=== PATIENT | female | born 1960 | race American Indian/Alaskan Native ===

== ENCOUNTER 2017-05-25 18:47 | Emergency (ER) | payer MEDICAID ==
[2017-05-25] MEDS ORDERED: ZOFRAN ODT PO ONE (19:01)
[2017-05-25 19:29] LABS: Basophils % (Auto) 0.5 % (0.0-1.8); Eosinophils % (Auto) 1.6 % (0.0-4.3); Hematocrit 35.5 % (30.3-42.9); Hemoglobin 11.7 gm/dl (10.1-14.3); Mean Corpuscular HGB Conc 33 % (30-34); Mean Corpuscular Volume 75 fl (79-97); Platelet Count 220 K/mm3 (140-440); Red Blood Count 4.73 M/mm3 (3.65-5.03); Red Cell Distribution Width 16.5 % (13.2-15.2); White Blood Count 6.8 K/mm3 (4.5-11.0)
[2017-05-25 19:42] LABS: Mean Corpuscular Hemoglobin 25 pg (28-32)
[2017-05-25 19:49] LABS: Alanine Aminotransferase 19 units/L (7-56); Albumin 4.3 g/dL (3.9-5); Albumin/Globulin Ratio 0.9 %; Alkaline Phosphatase 249 units/L (35-129); Anion Gap 19 mmol/L; BUN/Creatinine Ratio 10; Blood Urea Nitrogen 5 mg/dL (7-17); Calcium 9.8 mg/dL (8.4-10.2); Carbon Dioxide 32 mmol/L (22-30); Chloride 94.5 mmol/L (98-107); Glucose 87 mg/dL (65-100); Lipase 27 units/L (13-60); Potassium 3.1 mmol/L (3.6-5.0); Sodium 142 mmol/L (137-145); Total Protein 8.9 g/dL (6.3-8.2)
[2017-05-25] MEDS ORDERED: K-DUR PO ONE (21:45)
[2017-05-25 22:46] LABS: Bilirubin,Urine NEG (Negative); Blood,Urine NEG (Negative); Ketones,Urine NEG (Negative); Leukocyte Esterase,Urine NEG (Negative); Mucus,Urine FEW /HPF; Nitrite,Urine NEG (Negative); Protein,Urine >500 mg/dL (Negative)
[2017-05-26] MEDS ORDERED: MAG-OX PO ONE (02:04)
[2017-05-26] MEDS ORDERED: MAGNESIUM SULFATE 2GM/50ML 2 GM/50 ML BAG IV ONE (02:12)
[2017-05-26] MEDS ORDERED: DILAUDID IV ONE (02:12)
[2017-05-26] MEDS ORDERED: PEPCID IV ONE (02:12)
[2017-05-26] MEDS ORDERED: ZOFRAN IV ONE (02:12)
[2017-05-26] MEDS ORDERED: BENTYL IM ONE (02:13)
--- NOTE | 2017-05-26 02:13 | Emergency Department Report ---
ED General Adult HPI - General Chief complaint: Nausea/Vomiting/Diarrhea Stated complaint: VOMITING Time Seen by Provider: 05/26/17 02:03 Source: patient, EMS (ems notes not available at time of chart dictation), RN notes reviewed, old records reviewed Mode of arrival: Ambulatory Limitations: No Limitations - History of Present Illness Initial comments: This is a 56-year-old female who was previously evaluated by me in 2016. Patient has a past medical history of hypertension, high cholesterol, history of cholecystectomy, history of open heart surgery, history of renal colic. Patient presents to the ER complaining of abdominal pain. The abdominal pain is epigastric and radiates down to the suprapubic region. The abdominal pain has been present since 9:00 yesterday morning. The abdominal pain has been present for approximately 18 hours. It is intermittent. It increases with palpation, and it decreases with rest. Patient describes 7 episodes of nonbloody, emesis, although reports it is green. She defecated yesterday. She passed gas yesterday. There is no headache, neck pain, chest pain, shortness of breath, diaphoresis. The patient denies irritative sinus obstructive urinary symptoms. Of note, patient had a CAT scan back in January which suggested nonspecific ascites, patient reports that she thinks that she followed up with her primary care doctor for evaluation of cirrhosis/hepatitis, but is not sure what the workup demonstrated. -: Gradual Location: abdomen Radiation: abdomen, periumbillical Severity scale (0 -10): 10 Quality: aching Improves with: rest Worsens with: movement Associated Symptoms: malaise, nausea/vomiting, weakness. denies: confusion, chest pain, cough - Related Data Home Medications Medication Instructions Recorded Confirmed Last Taken Atorvastatin (Nf) [Lipitor] 1 tab PO DAILY 06/25/14 07/31/15 01/31/15 Insulin Glargine,Hum.rec.anlog 60 units SC DAILY 06/25/14 07/31/15 01/31/15 [Lantus] Metformin HCl [Glucophage] 1 tab PO DAILY 06/25/14 07/31/15 01/31/15 Multivit-Min/FA/Lycopen/Lutein [Eq 1 tab PO DAILY 06/25/14 07/31/15 01/31/15 Complete Multivitamin Tab] Quinapril HCl [Quinapril HCl] 1 tab PO DAILY 06/25/14 07/31/15 01/31/15 Methimazole 10 mg PO 07/31/15 Unknown Metoprolol [Lopressor] 25 mg PO 07/31/15 Unknown Previous Rx's Medication Instructions Recorded Last Taken Type Dicyclomine [Bentyl] 10 mg PO QID PRN #20 capsule 07/31/15 Unknown Rx Ondansetron [Zofran Odt] 4 mg PO QID PRN #20 tab.rapdis 07/31/15 Unknown Rx Ondansetron [Zofran Odt] 4 mg PO Q8HR #20 tab.rapdis 02/15/16 Unknown Rx traMADol [Ultram] 50 mg PO Q4HR PRN #20 tablet 02/15/16 Unknown Rx Acetaminophen [Tylenol Arthritis] 650 mg PO Q6HR PRN #30 tablet.er 05/26/17 Unknown Rx Ibuprofen [Motrin] 600 mg PO Q8H PRN #30 tablet 05/26/17 Unknown Rx Levofloxacin [Levaquin] 750 mg PO QDAY #7 tablet 05/26/17 Unknown Rx Magnesium Oxide 500 mg PO QDAY #7 capsule 05/26/17 Unknown Rx Metoclopramide [Reglan] 10 mg PO QID PRN #30 tablet 05/26/17 Unknown Rx Potassium Chloride 20 meq PO QDAY #7 packet 05/26/17 Unknown Rx Allergies Allergy/AdvReac Type Severity Reaction Status Date / Time codeine Allergy Hives Verified 02/15/16 13:26 Penicillins Allergy Hives Verified 02/15/16 13:26 ED Review of Systems ROS: Stated complaint: VOMITING Other details as noted in HPI Constitutional: malaise. denies: fever Eyes: denies: eye discharge ENT: denies: epistaxis Respiratory: denies: cough Cardiovascular: denies: chest pain Gastrointestinal: abdominal pain, nausea, vomiting Genitourinary: denies: dysuria Musculoskeletal: as per HPI Skin: as per HPI Neurological: weakness Psychiatric: as per HPI ED Past Medical Hx - Past Medical History Hx Hypertension: Yes (PLUS 10 YRS) Hx Diabetes: Yes Hx GERD: Yes Hx Asthma: No Hx COPD: No Hx Tuberculosis: No Hx HIV: No Additional medical history: HIGH CHOLESTEROL - Surgical History Hx Open Heart Surgery: Yes Hx Cholecystectomy: Yes Additional Surgical History: "THYROID PROBLEMS" - Social History Smoking Status: Never Smoker Substance Use Type: None - Medications Home Medications: Home Medications Medication Instructions Recorded Confirmed Last Taken Type Atorvastatin (Nf) [Lipitor] 1 tab PO DAILY 06/25/14 07/31/15 01/31/15 History Insulin Glargine,Hum.rec.anlog 60 units SC DAILY 06/25/14 07/31/15 01/31/15 History [Lantus] Metformin HCl [Glucophage] 1 tab PO DAILY 06/25/14 07/31/15 01/31/15 History Multivit-Min/FA/Lycopen/Lutein [Eq 1 tab PO DAILY 06/25/14 07/31/15 01/31/15 History Complete Multivitamin Tab] Quinapril HCl [Quinapril HCl] 1 tab PO DAILY 06/25/14 07/31/15 01/31/15 History Dicyclomine [Bentyl] 10 mg PO QID PRN #20 capsule 07/31/15 Unknown Rx Methimazole 10 mg PO 07/31/15 Unknown History Metoprolol [Lopressor] 25 mg PO 07/31/15 Unknown History Ondansetron [Zofran Odt] 4 mg PO QID PRN #20 tab.rapdis 07/31/15 Unknown Rx Ondansetron [Zofran Odt] 4 mg PO Q8HR #20 tab.rapdis 02/15/16 Unknown Rx traMADol [Ultram] 50 mg PO Q4HR PRN #20 tablet 02/15/16 Unknown Rx Acetaminophen [Tylenol Arthritis] 650 mg PO Q6HR PRN #30 tablet.er 05/26/17 Unknown Rx Ibuprofen [Motrin] 600 mg PO Q8H PRN #30 tablet 05/26/17 Unknown Rx Levofloxacin [Levaquin] 750 mg PO QDAY #7 tablet 05/26/17 Unknown Rx Magnesium Oxide 500 mg PO QDAY #7 capsule 05/26/17 Unknown Rx Metoclopramide [Reglan] 10 mg PO QID PRN #30 tablet 05/26/17 Unknown Rx Potassium Chloride 20 meq PO QDAY #7 packet 05/26/17 Unknown Rx ED Physical Exam - General Limitations: No Limitations General appearance: alert, in distress - Head Head exam: Present: atraumatic, normocephalic - Eye Eye exam: Present: normal appearance, EOMI - ENT ENT exam: Present: normal exam, normal orophraynx, mucous membranes moist, normal external ear exam - Neck Neck exam: Present: normal inspection, full ROM - Respiratory Respiratory exam: Present: normal lung sounds bilaterally. Absent: respiratory distress, chest wall tenderness - Cardiovascular Cardiovascular Exam: Present: regular rate, normal rhythm, normal heart sounds. Absent: systolic murmur, diastolic murmur, rubs, gallop - GI/Abdominal GI/Abdominal exam: Present: soft, normal bowel sounds. Absent: distended, tenderness, guarding, rebound, rigid, pulsatile mass - Extremities Exam Extremities exam: Present: normal inspection, full ROM, normal capillary refill. Absent: pedal edema, joint swelling, calf tenderness - Back Exam Back exam: Present: normal inspection, full ROM. Absent: tenderness, CVA tenderness (R), paraspinal tenderness, vertebral tenderness - Neurological Exam Neurological exam: Present: alert, oriented X3, CN II-XII intact, other ( Extraocular movements intact. Tongue midline. No facial droop. Facial sensation intact to light touch in the V1, V2, V3 distribution bilaterally. 5 and 5 strength in 4 extremities.. Sensation is intact to light touch in 4 extremities.). Absent: motor sensory deficit - Psychiatric Psychiatric exam: Present: anxious - Skin Skin exam: Present: warm, dry, intact, normal color. Absent: rash ED Course Vital Signs 05/25/17 05/25/17 05/26/17 18:56 23:56 02:44 Temperature 98.3 F 97.4 F L Pulse Rate 96 H 89 94 H Respiratory 18 14 14 Rate Blood Pressure 190/100 214/115 Blood Pressure [Left] O2 Sat by Pulse 100 100 100 Oximetry 05/26/17 05/26/17 05/26/17 02:45 02:46 02:48 Temperature Pulse Rate 94 H 98 H 98 H Respiratory 14 14 24 Rate Blood Pressure 200/101 200/101 200/101 Blood Pressure [Left] O2 Sat by Pulse 100 100 99 Oximetry 05/26/17 05/26/17 05/26/17 02:50 02:52 02:54 Temperature Pulse Rate 97 H 94 H 96 H Respiratory 24 22 19 Rate Blood Pressure 200/101 200/101 200/101 Blood Pressure [Left] O2 Sat by Pulse 99 99 100 Oximetry 05/26/17 05/26/17 05/26/17 02:56 02:58 03:00 Temperature Pulse Rate 93 H 91 H 94 H Respiratory 18 21 13 Rate Blood Pressure 200/101 149/80 149/80 Blood Pressure [Left] O2 Sat by Pulse 100 99 100 Oximetry 05/26/17 05/26/17 05/26/17 03:02 03:04 03:06 Temperature Pulse Rate 89 87 89 Respiratory 21 19 20 Rate Blood Pressure 158/85 158/85 158/85 Blood Pressure [Left] O2 Sat by Pulse 99 99 100 Oximetry 05/26/17 05/26/17 05/26/17 03:08 03:10 03:12 Temperature Pulse Rate 88 86 88 Respiratory 21 20 20 Rate Blood Pressure 158/85 158/85 158/85 Blood Pressure [Left] O2 Sat by Pulse 100 100 100 Oximetry 05/26/17 05/26/17 05/26/17 03:14 03:16 03:18 Temperature Pulse Rate 89 86 89 Respiratory 20 19 16 Rate Blood Pressure 158/85 158/85 158/85 Blood Pressure [Left] O2 Sat by Pulse 100 100 100 Oximetry 05/26/17 05/26/17 05/26/17 03:20 03:22 03:24 Temperature Pulse Rate 87 89 87 Respiratory 13 18 18 Rate Blood Pressure 158/85 156/85 156/85 Blood Pressure [Left] O2 Sat by Pulse 100 100 100 Oximetry 05/26/17 05/26/17 03:26 04:41 Temperature 97.5 F L Pulse Rate 90 98 H Respiratory 19 17 Rate Blood Pressure 156/85 Blood Pressure 193/99 [Left] O2 Sat by Pulse 100 100 Oximetry - Reevaluation(s) Reevaluation #1: 05/26/17 02:49 Differential diagnosis, including but not limited to: Diabetic gastroparesis, renal colic, pneumonia, GERD, gastritis, pancreatitis, hiatal hernia, intra-abdominal infection, elevated blood pressure secondary to pain and discomfort Assessment and plan: 56-year-old female, with complaint of epigastric pain that radiates distally, no chest pain or shortness of breath, with symptoms for approximately 18 hours. She is afebrile and hypertensive. Abdomen soft and benign. Laboratory studies demonstrate hypokalemia, hypomagnesemia. Patient will be given hydromorphone for pain, IV fluids, nausea medication. We will obtain EKG, and CT scan of the abdomen and pelvis. We will reassess after initial data points. Pressure is appreciated, this is most likely secondary to patient's pain and distress, she appears to be somewhat dehydrated, so we will withhold antihypertensives at this time. Reevaluation #2: 05/26/17 03:19 Patient reports improvement in pain. Blood pressure improved. CT scan pending Reevaluation #3: 05/26/17 05:07 CT scan of the abdomen and pelvis suggests possible early urinary tract infection: Distal bilateral periureteral stranding and urothelial thickening may be due to upper urinary tract infection. Correlation with urinalysis is requested. No abnormal enhancement pattern identified within the kidneys. Patient will be loaded with Levaquin IV, and discharged with levaquin. She has not had any vomiting since I previously evaluated her, and she is suitable for a trial of outpatient antibiotic therapy. Clinically doubt pyelonephritis given lack of CVA tenderness, CT scan findings, and urinalysis. Return precautions are reviewed. 05/26/17 05:12 Reevaluation #4: 05/26/17 05:18 As per verbal report from nurse, patient is able to tolerate liquid feeds. ED Medical Decision Making - Lab Data Result diagrams: 05/25/17 19:04 05/25/17 19:04 Vital Signs 05/25/17 05/25/17 18:56 23:56 Temperature 98.3 F 97.4 F L Pulse Rate 96 H 89 Respiratory 18 14 Rate Blood Pressure 190/100 214/115 O2 Sat by Pulse 100 100 Oximetry Lab Results 05/25/17 05/25/17 05/25/17 Range/Units 19:04 19:04 19:04 WBC 6.8 (4.5-11.0) K/mm3 RBC 4.73 (3.65-5.03) M/mm3 Hgb 11.7 (10.1-14.3) gm/dl Hct 35.5 (30.3-42.9) % MCV 75 L (79-97) fl MCH 25 L (28-32) pg MCHC 33 (30-34) % RDW 16.5 H (13.2-15.2) % Plt Count 220 (140-440) K/mm3 Lymph % (Auto) 15.1 (13.4-35.0) % [place] % (Auto) 5.4 (0.0-7.3) % Eos % (Auto) 1.6 (0.0-4.3) % Baso % (Auto) 0.5 (0.0-1.8) % Lymph # 1.0 L (1.2-5.4) K/mm3 [place] # 0.4 (0.0-0.8) K/mm3 Eos # 0.1 (0.0-0.4) K/mm3 Baso # 0.0 (0.0-0.1) K/mm3 Seg Neutrophils % 77.4 H (40.0-70.0) % Seg Neutrophils # 5.2 (1.8-7.7) K/mm3 Sodium 142 (137-145) mmol/L Potassium 3.1 L (3.6-5.0) mmol/L Chloride 94.5 L (98-107) mmol/L Carbon Dioxide 32 H (22-30) mmol/L Anion Gap 19 mmol/L BUN 5 L (7-17) mg/dL Creatinine 0.5 L (0.7-1.2) mg/dL Estimated GFR > 60 ml/min BUN/Creatinine Ratio 10 % Glucose 87 (65-100) mg/dL Calcium 9.8 (8.4-10.2) mg/dL Magnesium 1.40 L (1.7-2.3) mg/dL Total Bilirubin 1.40 H (0.1-1.2) mg/dL AST 30 (5-40) units/L ALT 19 (7-56) units/L Alkaline Phosphatase 249 H (35-129) units/L Total Protein 8.9 H (6.3-8.2) g/dL Albumin 4.3 (3.9-5) g/dL Albumin/Globulin Ratio 0.9 % Lipase 27 (13-60) units/L Urine Color (Yellow) Urine Turbidity (Clear) Urine pH (5.0-7.0) Ur Specific [place] (1.003-1.030) Urine Protein (Negative) mg/dL Urine Glucose (UA) (Negative) mg/dL Urine Ketones (Negative) mg/dL Urine Blood (Negative) Urine Nitrite (Negative) Urine Bilirubin (Negative) Urine Urobilinogen (<2.0) mg/dL Ur Leukocyte Esterase (Negative) Urine WBC (Auto) (0.0-6.0) /HPF Urine RBC (Auto) (0.0-6.0) /HPF U Epithel Cells (Auto) (0-13.0) /HPF Urine Mucus /HPF 05/25/17 Range/Units 22:22 WBC (4.5-11.0) K/mm3 RBC (3.65-5.03) M/mm3 Hgb (10.1-14.3) gm/dl Hct (30.3-42.9) % MCV (79-97) fl MCH (28-32) pg MCHC (30-34) % RDW (13.2-15.2) % Plt Count (140-440) K/mm3 Lymph % (Auto) (13.4-35.0) % [place] % (Auto) (0.0-7.3) % Eos % (Auto) (0.0-4.3) % Baso % (Auto) (0.0-1.8) % Lymph # (1.2-5.4) K/mm3 [place] # (0.0-0.8) K/mm3 Eos # (0.0-0.4) K/mm3 Baso # (0.0-0.1) K/mm3 Seg Neutrophils % (40.0-70.0) % Seg Neutrophils # (1.8-7.7) K/mm3 Sodium (137-145) mmol/L Potassium (3.6-5.0) mmol/L Chloride (98-107) mmol/L Carbon Dioxide (22-30) mmol/L Anion Gap mmol/L BUN (7-17) mg/dL Creatinine (0.7-1.2) mg/dL Estimated GFR ml/min BUN/Creatinine Ratio % Glucose (65-100) mg/dL Calcium (8.4-10.2) mg/dL Magnesium (1.7-2.3) mg/dL Total Bilirubin (0.1-1.2) mg/dL AST (5-40) units/L ALT (7-56) units/L Alkaline Phosphatase (35-129) units/L Total Protein (6.3-8.2) g/dL Albumin (3.9-5) g/dL Albumin/Globulin Ratio % Lipase (13-60) units/L Urine Color Yellow (Yellow) Urine Turbidity Clear (Clear) Urine pH 8.0 H (5.0-7.0) Ur Specific [place] 1.011 (1.003-1.030) Urine Protein >500 (Negative) mg/dL Urine Glucose (UA) Neg (Negative) mg/dL Urine Ketones Neg (Negative) mg/dL Urine Blood Neg (Negative) Urine Nitrite Neg (Negative) Urine Bilirubin Neg (Negative) Urine Urobilinogen 2.0 (<2.0) mg/dL Ur Leukocyte Esterase Neg (Negative) Urine WBC (Auto) 8.0 H (0.0-6.0) /HPF Urine RBC (Auto) 6.0 (0.0-6.0) /HPF U Epithel Cells (Auto) 2.0 (0-13.0) /HPF Urine Mucus Few /HPF - EKG Data 05/26/17 03:19 Sinus, 88 bpm, QTC prolonged, left axis deviation, high left ventricular voltage , not morphologically consistent with ST elevation myocardial infarction, appears unchanged from prior 02/15/2016. - Radiology Data Radiology results: report reviewed, image reviewed Patient: FANTA MCKEON MR#: [id number] : 1960 Acct:[id number] Age/Sex: 56 / F ADM Date: 05/25/17 Loc: ED Attending Dr: Ordering Physician: PRADEEP BANKS MD Date of Service: 05/26/17 Procedure(s): CT abdomen pelvis w con Accession Number(s): [id number] cc: PRADEEP BANKS MD FINAL REPORT EXAM: CT ABDOMEN PELVIS W CON HISTORY: abd pain mn/v TECHNIQUE: CT images are acquired through the Abdomen and Pelvis in late arterial and delayed phases following intravenous administration of contrast. Transaxial, coronal and sagittal reformations are provided. PRIORS: None FINDINGS: Partially visualized intrathoracic contents are remarkable for prior cardiac surgery. Cholecystectomy. Lobular/nodular contour of the liver. Prominent main portal vein. Gastrohepatic varices are present. Is the liver, gallbladder, pancreas, spleen, and adrenal glands are unremarkable. Kidneys show no worrisome lesions, hydronephrosis, or calculi. There is bilateral binu ureteral stranding and suggested urothelial thickening involving the distal ureters. No perinephric stranding or obvious enhancement abnormalities in the kidneys. The urinary urinary bladder is unremarkable. Small and large bowel are normal in caliber. Appendix is normal. No free air, free fluid, or lymphadenopathy identified. Aorta is normal in course and caliber. Densely scattered aortoiliac atherosclerosis. Anteverted uterus. No significant free fluid in the pelvis. Anterior abdominal wall edema and stranding best seen on axial series 3, image 87 may be secondary to abdominal injection sites. Superficial soft tissues are otherwise unremarkable. No acute or aggressive appearing skeletal findings. IMPRESSION: Distal bilateral periureteral stranding and urothelial thickening may be due to upper urinary tract infection. Correlation with urinalysis is requested. No abnormal enhancement pattern identified within the kidneys. Lobular/nodular contour of the liver with suggested sequela of portal hypertension. Clinical correlation for cirrhosis is requested. Transcribed By: MB Dictated By: PRADEEP HARRIS MD Electronically Authenticated By: PRADEEP HARRIS MD Signed Date/Time: 05/26/17 0040 Critical care attestation.: If time is entered above; I have spent that time in minutes in the direct care of this critically ill patient, excluding procedure time. ED Disposition Clinical Impression: Abdominal pain, Hypokalemia, Elevated blood pressure reading Disposition: - TO HOME OR SELFCARE Is pt being admited?: No Does the pt Need Aspirin: No Condition: Good Additional Instructions: Blood pressure was elevated, please follow-up with the primary care doctor for this within the next month. Long-term complications of hypertension and elevated blood pressure includes stroke, heart attack, disability, , paralysis, loss of quality life. Laboratory studies demonstrated decreased potassium and magnesium. Take the supplementation as directed. Follow up with a primary care doctor within the next month to have these rechecked. Do not take metformin for the next 48 hours. Cultures were sent today, results will be available in the next 3-5 days. Have a primary care doctor contact the medical records department to obtain culture results. Follow up with a primary care doctor within the next 2-3 days for recheck. Return to the ER right away with new pain, worsened pain, migration of pain, fevers, chills, lethargy, irritability, projectile vomiting, change in mental status, confusion, inability to tolerate liquid feeds. Prescriptions: Acetaminophen [Tylenol Arthritis] 650 mg PO Q6HR PRN #30 tablet.er PRN Reason: Pain Ibuprofen [Motrin] 600 mg PO Q8H PRN #30 tablet PRN Reason: Pain Levofloxacin [Levaquin] 750 mg PO QDAY #7 tablet Magnesium Oxide 500 mg PO QDAY #7 capsule Metoclopramide [Reglan] 10 mg PO QID PRN #30 tablet PRN Reason: Nausea Potassium Chloride 20 meq PO QDAY #7 packet Referrals: PRIMARY CARE, [Primary Care Provider] - 3-5 Days DESIREE NOVA MD [Staff Physician] - 3-5 Days [facility] [Provider Group] - 3-5 Days REGAN BARR JR, MD [Staff Physician] - 3-5 Days
[2017-05-26] MEDS ORDERED: APRESOLINE IV ONE (02:44)
[2017-05-26] MEDS ORDERED: KCL 10MEQ/100ML 10 MEQ/100 ML BAG IV SCH (03:00)
[2017-05-26] MEDS ORDERED: NACL 0.9% 1000 ML 1,000 ML ONE (03:14)
[2017-05-26] MEDS ORDERED: K-DUR PO ONE (04:04)
--- NOTE | 2017-05-26 04:42 | Cat Scan Report ---
FINAL REPORT EXAM: CT ABDOMEN PELVIS W CON HISTORY: abd pain mn/v TECHNIQUE: CT images are acquired through the Abdomen and Pelvis in late arterial and delayed phases following intravenous administration of contrast. Transaxial, coronal and sagittal reformations are provided. PRIORS: None FINDINGS: Partially visualized intrathoracic contents are remarkable for prior cardiac surgery. Cholecystectomy. Lobular/nodular contour of the liver. Prominent main portal vein. Gastrohepatic varices are present. Is the liver, gallbladder, pancreas, spleen, and adrenal glands are unremarkable. Kidneys show no worrisome lesions, hydronephrosis, or calculi. There is bilateral binu ureteral stranding and suggested urothelial thickening involving the distal ureters. No perinephric stranding or obvious enhancement abnormalities in the kidneys. The urinary urinary bladder is unremarkable. Small and large bowel are normal in caliber. Appendix is normal. No free air, free fluid, or lymphadenopathy identified. Aorta is normal in course and caliber. Densely scattered aortoiliac atherosclerosis. Anteverted uterus. No significant free fluid in the pelvis. Anterior abdominal wall edema and stranding best seen on axial series 3, image 87 may be secondary to abdominal injection sites. Superficial soft tissues are otherwise unremarkable. No acute or aggressive appearing skeletal findings. IMPRESSION: Distal bilateral periureteral stranding and urothelial thickening may be due to upper urinary tract infection. Correlation with urinalysis is requested. No abnormal enhancement pattern identified within the kidneys. Lobular/nodular contour of the liver with suggested sequela of portal hypertension. Clinical correlation for cirrhosis is requested.
[2017-05-26] MEDS ORDERED: LEVAQUIN 750MG/150ML 750 MG/150 ML BAG IV ONE (05:10)
[2017-05-26 06:14] VITALS: BP 191/103
== END 2017-05-26 06:14 | disposition home or self-care (01) ==
LOC: ED 18:47
DX: E87.6 Hypokalemia (principal); R10.13 Epigastric pain; E11.9 Type 2 diabetes mellitus without complications; K21.9 Gastro-esophageal reflux disease without esophagitis; E78.00 Pure hypercholesterolemia, unspecified; Z79.4 Long term (current) use of insulin
CPT/HCPCS: 36415; 74177; 80053; 81001; 83690; 83735; 85025; 87076; 87086; 87186; 93005; 93010; 96365; 96366; 96368; 96372; 96375; 99284; J0500; J1170; J2405; J3475; J3480; J7030; Q9967; Q0162